=== PATIENT | female | born 1985 | race Hispanic/Latino ===

== ENCOUNTER → 2025-10-04 | Outpatient (CLI) | payer MEDICAID ==
[2025-10-04 22:21] VITALS: PULSE 81; RESP 10
[2025-10-04 22:31] VITALS: PULSE 81; RESP 12
[2025-10-04 23:07] VITALS: PULSE 69; RESP 20
[2025-10-04 23:23] VITALS: PULSE 70; RESP 17
[2025-10-04 23:30] VITALS: PULSE 74; RESP 16
[2025-10-05] VITALS (12 sets, daily range): PULSE 60–69; RESP 12–18
== END | disposition home or self-care (01) ==
LOC: SLP 12:21
PROVIDERS: ATTEND Internal Medicine Cardiovascular Disease
DX: G47.33 Obstructive sleep apnea (adult) (pediatric) (principal); G47.30 Sleep apnea, unspecified
CPT/HCPCS: 95811